=== PATIENT | male | born 1955 | race Asian ===

== ENCOUNTER 2017-08-07 01:50 | Emergency (ER) | payer MEDICAID ==
[2017-08-07 01:55] VITALS: BP 164/73
[2017-08-07] MEDS ORDERED: Prochlorperazine 10 MG/2 ML SDV IVPUSH ONE (02:24)
[2017-08-07] MEDS ORDERED: diphenhydrAMINE 50 MG/ML SDV IVPUSH ONE (02:25)
[2017-08-07] MEDS ORDERED: Sodium Chloride 0.9% 1,000 ML IV SCH (02:30)
--- NOTE | 2017-08-07 03:43 | EDM.PDOC ---
ED HPI GENERAL MEDICAL PROBLEM - General Chief Complaint: Headache Stated Complaint: HEADACHE/VOMITING Time Seen by Provider: 08/07/17 02:23 Source of Information: Reports: Family History Limitations: Reports: No Limitations - History of Present Illness INITIAL COMMENTS - FREE TEXT/NARRATIVE: This patient has a severe migraine which is similar to his previous headaches. When he gets a really bad headache he tends to feel short of breath and that happened today to. He took his medications at home but that didn't seem to help the headache. Headache Pain Score (Numeric/FACES): 8 - Related Data Allergies Allergy/AdvReac Type Severity Reaction Status Date / Time No Known Allergies Allergy Verified 04/12/16 08:45 Home Meds: Home Meds Fluticasone Propionate [Flonase] 2 sprays NS DAILY 03/22/16 [History] Loratadine [Claritin] 10 mg PO DAILY 03/22/16 [History] Pantoprazole [Protonix] 40 mg PO DAILY #30 tab.cr 03/23/16 [Rx] SUMAtriptan [Imitrex] 50 mg PO Q2H PRN #9 tablet 03/23/16 [Rx] Acetaminophen/Aspirin/Caffeine [Pain Reliever Plus] 1 tab PO DAILY PRN 04/12/16 [History] Past Medical History - Past Health History Medical/Surgical History: Denies Medical/Surgical History HEENT History: Reports: Allergic Rhinitis Gastrointestinal History: Reports: Gastritis, GERD Neurological History: Reports: Migraines - Past Surgical History Head Surgeries/Procedures: Reports: None Cardiovascular Surgical History: Reports: None Respiratory Surgical History: Reports: None GI Surgical History: Reports: None Social & Family History - Family History Family Medical History: Unobtainable HEENT: Reports: None Cardiac: Reports: None Respiratory: Reports: None GI: Reports: None : Reports: None OBGYN: Reports: None Musculoskeletal: Reports: None Neurological: Reports: None Psychiatric: Reports: None Endocrine/Metabolic: Reports: None Hematologic: Reports: None Immunologic: Reports: None Oncologic: Reports: None - Tobacco Use Smoking Status *Q: Former Smoker Years of Tobacco use: 36 Packs/Tins Daily: 1 Used Tobacco, but Quit: Yes Month/Year Tobacco Last Used: 24 Second Hand Smoke Exposure: No - Caffeine Use Caffeine Use: Reports: Energy Drinks - Alcohol Use Days Per Week of Alcohol Use: 7 Number of Drinks Per Day: 1 Total Drinks Per Week: 7 - Recreational Drug Use Recreational Drug Use: No ED ROS GENERAL - Review of Systems Review Of Systems: ROS reveals no pertinent complaints other than HPI. - Physical Exam Exam: See Below Exam Limited By: No Limitations General Appearance: Alert, WD/WN, Mild Distress Eye Exam: Bilateral Eye: EOMI, PERRL Throat/Mouth: Normal Inspection Neck: Normal Inspection Respiratory/Chest: Lungs Clear Cardiovascular: Regular Rate, Rhythm Neuro Exam (Abbreviated): Alert, CN II-XII Intact, No Motor/Sensory Deficits Extremities: Normal Inspection Psychiatric: Normal Affect Skin Exam: Warm, Dry Course - Vital Signs Last Recorded V/S: Last Vital Signs Temp 36.2 C 08/07/17 01:54 Pulse 63 08/07/17 01:54 Resp 14 08/07/17 01:54 BP 164/73 H 08/07/17 01:54 Pulse Ox 90 L 08/07/17 01:54 - Orders/Labs/Meds Meds: Medications Discontinued Medications Generic Name Dose Route Start Last Admin Trade Name Jose PRN Reason Stop Dose Admin Diphenhydramine HCl 50 mg 08/07/17 02:25 08/07/17 02:37 Benadryl IVPUSH 08/07/17 02:26 50 mg ONETIME ONE Administration Sodium Chloride 1,000 mls @ 999 mls/hr 08/07/17 02:30 08/07/17 02:36 Normal Saline IV 999 mls/hr ASDIRECTED NAZ Administration Prochlorperazine Edisylate 10 mg 08/07/17 02:24 08/07/17 02:37 Compazine IVPUSH 08/07/17 02:25 10 mg ONETIME ONE Administration - Re-Assessments/Exams Free Text/Narrative Re-Assessment/Exam: 08/07/17 05:13 This patient received 1 L IV normal saline 10 mg of Compazine and 50 mg of Benadryl IV. He had good relief of his headache and was discharged. Departure - Departure Time of Disposition: 03:42 Disposition: Home, Self-Care 01 Condition: Fair Clinical Impression: Migraine - Discharge Information Instructions: Migraine Headache Referrals: PCP,None [Primary Care Provider] - Forms: ED Department Discharge Additional Instructions: Continue your usual medications. Note that the medications she received in the ER will continue to cause sedation for at least the next 12 hours. These medications can impair driving or operating machinery.
== END 2017-08-07 04:01 | disposition home or self-care (01) ==
LOC: JP.ED 01:50
DX: G43.909 Migraine, unspecified, not intractable, without status migrainosus (principal); Z87.891 Personal history of nicotine dependence; Z79.899 Other long term (current) drug therapy
CPT/HCPCS: 96361; 96374; 96375; 99283; J0780; J1200; J7040

== ENCOUNTER 2018-09-20 14:51 | Emergency (ER) | payer MEDICAID ==
[2018-09-20 15:16] VITALS: BP 159/92
[2018-09-20] MEDS ORDERED: Fluorescein 1 MG Ophth Strip EYERT ONE (15:23)
[2018-09-20] MEDS ORDERED: Proparacaine 0.5% Ophth Soln 15 ML Bottle EYERT ONE (15:24)
--- NOTE | 2018-09-20 15:34 | EDM.PDOC ---
ED HPI GENERAL MEDICAL PROBLEM - General Chief Complaint: Eye Problems Stated Complaint: RIGHT EYE INJURY SOMETHING FELL ON HIM Time Seen by Provider: 09/20/18 15:23 Source of Information: Reports: Patient History Limitations: Reports: Language Barrier - History of Present Illness INITIAL COMMENTS - FREE TEXT/NARRATIVE: Patient presents for evaluation of an injury to the right eye region. 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 Now the next day the eye is uncomfortable and he has blurry vision. The left eye is fine. Duration: Day(s): (1) Location: Reports: Head Quality: Reports: Dull Severity: Mild Improves with: Reports: None Worsens with: Reports: None - Related Data Allergies Allergy/AdvReac Type Severity Reaction Status Date / Time No Known Allergies Allergy Verified 04/12/16 08:45 Home Meds: Home Meds Fluticasone Propionate [Flonase] 2 sprays NS DAILY 03/22/16 [History] Loratadine [Claritin] 10 mg PO DAILY 03/22/16 [History] Pantoprazole [Protonix] 40 mg PO DAILY #30 tab.cr 03/23/16 [Rx] SUMAtriptan [Imitrex] 50 mg PO Q2H PRN #9 tablet 03/23/16 [Rx] Acetaminophen/Aspirin/Caffeine [Pain Reliever Plus] 1 tab PO DAILY PRN 04/12/16 [History] Past Medical History - Past Health History Medical/Surgical History: Denies Medical/Surgical History HEENT History: Reports: Allergic Rhinitis Gastrointestinal History: Reports: Gastritis, GERD Neurological History: Reports: Migraines - Past Surgical History Head Surgeries/Procedures: Reports: None Cardiovascular Surgical History: Reports: None Respiratory Surgical History: Reports: None GI Surgical History: Reports: None Social & Family History - Family History Family Medical History: Unobtainable HEENT: Reports: None Cardiac: Reports: None Respiratory: Reports: None GI: Reports: None : Reports: None OBGYN: Reports: None Musculoskeletal: Reports: None Neurological: Reports: None Psychiatric: Reports: None Endocrine/Metabolic: Reports: None Hematologic: Reports: None Immunologic: Reports: None Oncologic: Reports: None - Caffeine Use Caffeine Use: Reports: Energy Drinks ED ROS GENERAL - Review of Systems Review Of Systems: See Below HEENT: Reports: Eye Pain, Vision Change ED EXAM GENERAL W FULL EYE - Physical Exam Exam: See Below Text/Narrative:: Plain light inspection of the right eye does not show any obvious defect. Topical proparacaine and pleurisy were applied to the eye and a small corneal abrasion was seen at the 2 o'clock position of the eye. Exam Limited By: Language Barrier General Appearance: Alert, No Apparent Distress Eye Exam: Right Eye: Corneal Abrasion (2 o'clock position) Cornea Exam: Right: Corneal Abrasion, Examined with Flourescein Pupillary Reaction: Bilateral: Brisk Anterior Chamber: Right: Normal Appearance Course - Vital Signs Last Recorded V/S: Last Vital Signs Temp 36.8 C 09/20/18 15:15 Pulse 65 09/20/18 15:15 Resp 13 09/20/18 15:15 BP 159/92 H 09/20/18 15:15 Pulse Ox 96 09/20/18 15:15 - Orders/Labs/Meds Meds: Medications Discontinued Medications Generic Name Dose Route Start Last Admin Trade Name Jose PRN Reason Stop Dose Admin Fluorescein Sodium 1 mg 09/20/18 15:23 09/20/18 15:46 Ful-Larisa EYERT 09/20/18 15:24 1 mg ONETIME ONE Administration Proparacaine HCl 4 ml 09/20/18 15:24 09/20/18 15:30 Proparacaine 0.5% Ophth Soln EYERT 09/20/18 15:25 2 drop ONETIME ONE Administration - Re-Assessments/Exams Free Text/Narrative Re-Assessment/Exam: 09/20/18 19:56 he tolerated the eye exam well. No foreign bodies were seen. I will have him use erythromycin eye ointment, 1 cm applied to the inside of the lower lid 4 times a day for 3 days. Cold water cloths to the eyelid area as much as possible in the next 24 hours. Recheck with eye doctor if not better in 3 days or return to this department. Departure - Departure Time of Disposition: 15:44 Disposition: Home, Self-Care 01 Condition: Good Clinical Impression: Corneal abrasion Qualifiers: Laterality: right - Discharge Information *PRESCRIPTION DRUG MONITORING PROGRAM REVIEWED*: Not Applicable *COPY OF PRESCRIPTION DRUG MONITORING REPORT IN PATIENT ELY: Not Applicable Instructions: Corneal Abrasion, [id number] Referrals: PCP,None [Primary Care Provider] - Forms: ED Department Discharge Additional Instructions: Do not rub the eye. Apply cold water cloth over the eyelids as much as possible today and tonight. Apply erythromycin eye ointment, 1 cm to the lower eyelid 4 times a day over the next 3 days. If still uncomfortable after 3 days, recheck in clinic or emergency department.
== END 2018-09-20 15:52 | disposition home or self-care (01) ==
LOC: JP.ED 14:51
DX: S05.01XA Injury of conjunctiva and corneal abrasion without foreign body, right eye, initial encounter (principal); W20.8XXA Other cause of strike by thrown, projected or falling object, initial encounter; Y93.89 Activity, other specified; J30.9 Allergic rhinitis, unspecified; K21.9 Gastro-esophageal reflux disease without esophagitis; K29.70 Gastritis, unspecified, without bleeding; G43.909 Migraine, unspecified, not intractable, without status migrainosus; Z79.899 Other long term (current) drug therapy
CPT/HCPCS: 99282; A9270

== ENCOUNTER 2020-10-12 08:37 | Emergency (ER) | payer MEDICAID ==
[2020-10-12 09:14] VITALS: BP 156/74; PULSE 51
[2020-10-12] MEDS ORDERED: Bacitracin Oint 1 GM U/D Packet TOP ONE (09:33)
--- NOTE | 2020-10-12 09:34 | EDM.PDOC ---
ED HPI GENERAL MEDICAL PROBLEM - General Chief Complaint: Lower Extremity Injury/Pain Stated Complaint: LEFT FOOT HURTS TO WALK Time Seen by Provider: 10/12/20 09:34 Source of Information: Reports: Patient History Limitations: Reports: No Limitations - History of Present Illness INITIAL COMMENTS - FREE TEXT/NARRATIVE: pt stepped on a sharp bone about 3 days ago. He is having increased pain in the anterior portion of the foot. Onset: Gradual, Other ( this happened 3 days ago, ) Duration: Hour(s): Location: Reports: Lower Extremity, Left Associated Symptoms: Reports: No Other Symptoms Left Feet Pain Score (Numeric/FACES): 8 - Related Data Allergies Allergy/AdvReac Type Severity Reaction Status Date / Time No Known Allergies Allergy Verified 10/12/20 09:14 Home Meds: Home Meds Fluticasone Propionate [Flonase] 2 sprays NS DAILY 03/22/16 [History] Loratadine [Claritin] 10 mg PO DAILY 03/22/16 [History] SUMAtriptan [Imitrex] 50 mg PO Q2H PRN #9 tablet 03/23/16 [Rx] Olopatadine HCl [Pataday Once Daily Relief] 5 ml OP ASDIRECTED 10/12/20 [History] Past Medical History - Past Health History Medical/Surgical History: Denies Medical/Surgical History HEENT History: Reports: Allergic Rhinitis Gastrointestinal History: Reports: Gastritis, GERD Neurological History: Reports: Migraines - Infectious Disease History Infectious Disease History: Reports: Other (See Below) Other Infectious Disease History: unknown - Past Surgical History Head Surgeries/Procedures: Reports: None HEENT Surgical History: Reports: None Cardiovascular Surgical History: Reports: None Respiratory Surgical History: Reports: None GI Surgical History: Reports: None Social & Family History - Family History Family Medical History: Unobtainable HEENT: Reports: None Cardiac: Reports: None Respiratory: Reports: None GI: Reports: None : Reports: None OBGYN: Reports: None Musculoskeletal: Reports: None Neurological: Reports: None Psychiatric: Reports: None Endocrine/Metabolic: Reports: None Hematologic: Reports: None Immunologic: Reports: None Oncologic: Reports: None - Tobacco Use Tobacco Use Status *Q: Unknown Ever Used Tobacco - Caffeine Use Caffeine Use: Reports: Tea Review of Systems - Review of Systems Review Of Systems: See Below Constitutional: Reports: No Symptoms Eyes: Reports: No Symptoms Ears: Reports: No Symptoms Nose: Reports: No Symptoms Mouth/Throat: Reports: No Symptoms Respiratory: Reports: No Symptoms Cardiovascular: Reports: No Symptoms Musculoskeletal: Reports: Other (painful left foot. ) ED EXAM, GENERAL - Physical Exam Exam: See Below Free Text/Narrative:: pt stepped on a bone ans has a puncture wound on the bottom of the left foot. Exam Limited By: No Limitations General Appearance: Alert, Anxious, Mild Distress Extremities: Other (pt is tender around the puncture wound. The pt thinks the bone came out intact. There is slight redness present. He is not current with his tetanus. ) Course - Vital Signs Last Recorded V/S: Last Vital Signs Temp 36.5 C 10/12/20 09:10 Pulse 51 L 10/12/20 09:10 Resp 16 10/12/20 09:10 BP 156/74 H 10/12/20 09:10 Pulse Ox 95 10/12/20 09:10 - Orders/Labs/Meds Meds: Medications Discontinued Medications Generic Name Dose Route Start Last Admin Trade Name Jose PRN Reason Stop Dose Admin Bacitracin 1 dose 10/12/20 09:33 Bacitracin Oint 1 Gm U/D Packet TOP 10/12/20 09:34 ONETIME ONE - Re-Assessments/Exams Free Text/Narrative Re-Assessment/Exam: 10/12/20 09:42 foot was soaked and dressed with bacatracin. He was given a tdap. Departure - Departure Time of Disposition: 09:34 Disposition: Home, Self-Care 01 Condition: Fair Clinical Impression: Infected puncture wound - Discharge Information Referrals: PCP,None [Primary Care Provider] - Forms: ED Department Discharge Care Plan Goals: soak in soapy water twice daily for 20 minutes, dry, apply bacatracin and a bandaid, keflex 500mg tid for 1 week. . tylenol and motrin for pain. Sepsis Event Note (ED) - Evaluation Sepsis Screening Result: No Definite Risk - Focused Exam Vital Signs: Vital Signs Temp Pulse Resp BP Pulse Ox 10/12/20 09:10 36.5 C 51 L 16 156/74 H 95
[2020-10-12] MEDS ORDERED: Diphtheria,Pertussis(Acell),Tetanus Vaccine 0.5 ML Syringe IM ONE (09:39)
== END 2020-10-12 09:56 | disposition home or self-care (01) ==
LOC: JP.ED 08:37
DX: S91.332A Puncture wound without foreign body, left foot, initial encounter (principal); L08.9 Local infection of the skin and subcutaneous tissue, unspecified; G43.909 Migraine, unspecified, not intractable, without status migrainosus; Z23 Encounter for immunization; Z79.899 Other long term (current) drug therapy; W22.8XXA Striking against or struck by other objects, initial encounter
CPT/HCPCS: 90471; 90715; 99282; 99283

== ENCOUNTER 2020-11-17 20:40 | Emergency (ER) | payer MEDICAID ==
[2020-11-17 20:53] VITALS: BP 150/77; PULSE 67
--- NOTE | 2020-11-17 22:15 | EDM.PDOC ---
ED HPI GENERAL MEDICAL PROBLEM - General Chief Complaint: General Stated Complaint: DIZZY,WEAK Time Seen by Provider: 11/17/20 21:38 Source of Information: Reports: Family (daughter acting as educational interpreter due to language barrier) History Limitations: Reports: Language Barrier - History of Present Illness INITIAL COMMENTS - FREE TEXT/NARRATIVE: Patient presents emergency room today secondary to 1 to 2-month history of dizzy weakness headache sweating episode shaking as described their interpretation by daughter. Patient states that he had a typical migraine today about 3 hours ago he took sumatriptan 50 mg as well as 1 acetaminophen it did help his headache slightly but usually it decreases it much more. So he came to the emergency room room for further evaluation. Daughter states that he has not seen his primary care provider in over 2 years. PMH--migraine HAs Meds--sumatriptan prn NKDA tob/drug--denies EtOH--rare COVID immunization (second dose received) early [place] Headache Pain Score (Numeric/FACES): 5 - Related Data Allergies Allergy/AdvReac Type Severity Reaction Status Date / Time No Known Allergies Allergy Verified 11/17/20 21:21 Home Meds: Home Meds SUMAtriptan [Imitrex] 50 mg PO Q2H PRN #9 tablet 03/23/16 [Rx] Past Medical History - Past Health History Medical/Surgical History: Denies Medical/Surgical History HEENT History: Reports: Allergic Rhinitis Gastrointestinal History: Reports: Gastritis, GERD Neurological History: Reports: Migraines - Infectious Disease History Infectious Disease History: Reports: Other (See Below) Other Infectious Disease History: unknown - Past Surgical History Head Surgeries/Procedures: Reports: None Respiratory Surgical History: Reports: None Social & Family History - Family History Family Medical History: Unobtainable HEENT: Reports: None Cardiac: Reports: None Respiratory: Reports: None GI: Reports: None : Reports: None OBGYN: Reports: None Musculoskeletal: Reports: None Neurological: Reports: None Psychiatric: Reports: None Endocrine/Metabolic: Reports: None Hematologic: Reports: None Immunologic: Reports: None Oncologic: Reports: None - Tobacco Use Tobacco Use Status *Q: Never Tobacco User - Caffeine Use Caffeine Use: Reports: None - Recreational Drug Use Recreational Drug Use: No ED ROS GENERAL - Review of Systems Review Of Systems: See Below Constitutional: Reports: Weakness HEENT: Reports: No Symptoms Respiratory: Reports: No Symptoms Cardiovascular: Reports: No Symptoms Endocrine: Reports: No Symptoms GI/Abdominal: Reports: Nausea : Reports: No Symptoms Musculoskeletal: Reports: No Symptoms Skin: Reports: No Symptoms Neurological: Reports: Dizziness, Headache, Weakness. Denies: Numbness, Tingling, Change in Speech Psychiatric: Reports: No Symptoms Hematologic/Lymphatic: Reports: No Symptoms Immunologic: Reports: No Symptoms ED EXAM, GENERAL - Physical Exam Exam: See Below Exam Limited By: No Limitations General Appearance: Alert, WD/WN, Mild Distress (laying flat in bed (only in dicates having dizziness at this time)) Eye Exam: Bilateral Eye: EOMI, Normal Inspection, PERRL Ears: Normal External Exam, Hearing Grossly Normal Nose: Normal Inspection Throat/Mouth: Normal Inspection, Normal Lips, Normal Teeth, Normal Oropharynx, Normal Voice, No Airway Compromise Head: Atraumatic, Normocephalic Neck: Normal Inspection, Supple, Non-Tender, Full Range of Motion Respiratory/Chest: No Respiratory Distress, Lungs Clear, Normal Breath Sounds, No Accessory Muscle Use Cardiovascular: Normal Peripheral Pulses, Regular Rate, Rhythm, No Edema, No Murmur Peripheral Pulses: 2+: Radial (L), Radial (R) GI/Abdominal: Normal Bowel Sounds, Soft, Non-Tender, No Distention (Male) Exam: Deferred Rectal (Males) Exam: Deferred Back Exam: Normal Inspection, Full Range of Motion Extremities: Normal Inspection, Normal Range of Motion, No Pedal Edema, Normal Capillary Refill Neurological: Alert, Oriented, CN II-XII Intact, Normal Cognition, No Motor/Sensory Deficits Psychiatric: Normal Affect, Normal Mood Skin Exam: Warm, Dry, Intact, Normal Color #1 Interpretation EKG Date: 11/17/20 Time: 22:31 (read by physician at 2237) Rhythm: NSR Rate (Beats/Min): 60 [place]: Normal P-Wave: Present (AR-169) QRS: Normal (QRS-95) ST-T: Normal QT: Normal (QT/QTc-417/417) EKG Interpretation Comments: NSR, normal EKG; no STEMI noted Course - Vital Signs Text/Narrative:: 2324--labs and radiology have been reviewed final CT reports no acute process. Labs noted for elevated glucose, mildly elevated BUN, mildly elevated hemoglobin. At this time recommend increase fluids water for better hydration as well as need for PCM follow-up regarding not only noted elevated blood pressure but also elevated blood glucose level as patient needs further evaluation for hypertension and diabetes this was discussed with patient and daughter at bedside verbalized understanding agreement ready for discharge Last Recorded V/S: Last Vital Signs Temp 97.6 F 11/17/20 21:18 Pulse 67 11/17/20 21:18 Resp 16 11/17/20 21:18 BP 150/77 H 11/17/20 21:18 Pulse Ox 98 11/17/20 21:18 Orthostatic Blood Pressure [ 162/96 Standing] Orthostatic Blood Pressure [ 150/85 Sitting] Orthostatic Blood Pressure [ 153/82 Supine] - Orders/Labs/Meds Orders: Active Orders 24 hr Category Date Time Status EKG Documentation Completion [RC] ASDIRECTED Care 11/17/20 22:09 Active EKG 12 Lead [EK] Routine Ther 11/17/20 22:09 Ordered Labs: Laboratory Tests 11/17/20 11/17/20 Range/Units 22:22 22:22 WBC 5.9 (4.5-11.0) K/uL RBC 5.16 (4.30-5.90) M/uL Hgb 15.5 H (12.0-15.0) g/dL Hct 45.5 (40.0-54.0) % MCV 88 (80-98) fL MCH 30 (27-31) pg MCHC 34 (32-36) % Plt Count 154 (150-400) K/uL Neut % (Auto) 57.1 (36-66) % Lymph % (Auto) 30.8 (24-44) % [place] % (Auto) 9.9 H (2-6) % Eos % (Auto) 1.9 L (2-4) % Baso % (Auto) 0.3 (0-1) % Sodium 143 (140-148) mmol/L Potassium 4.2 (3.6-5.2) mmol/L Chloride 104 (100-108) mmol/L Carbon Dioxide 29 (21-32) mmol/L Anion Gap 10.3 (5.0-14.0) mmol/L BUN 22 H (7-18) mg/dL Creatinine 1.1 (0.8-1.3) mg/dL Est Cr Clr Drug Dosing 62.83 mL/min Estimated GFR (MDRD) > 60 (>60) Glucose 171 H (74-106) mg/dL Calcium 8.5 (8.5-10.1) mg/dL Total Bilirubin 0.5 (0.2-1.0) mg/dL AST 29 D (15-37) U/L ALT 66 D (12-78) U/L Alkaline Phosphatase 65 (46-116) U/L Total Protein 6.8 (6.4-8.2) g/dL Albumin 3.3 L (3.4-5.0) g/dL Globulin 3.5 (2.3-3.5) g/dL Albumin/Globulin Ratio 0.9 L (1.2-2.2) - Radiology Interpretation CT Results Date: 11/17/20 CT Results Time: 22:42 (preliminary reading no acute findings; final radiology report pending) Departure - Departure Time of Disposition: 23:26 Disposition: Home, Self-Care 01 Clinical Impression: Chronic migraine, Dizziness, Elevated blood pressure reading, Hyperglycemia - Discharge Information *PRESCRIPTION DRUG MONITORING PROGRAM REVIEWED*: Not Applicable *COPY OF PRESCRIPTION DRUG MONITORING REPORT IN PATIENT ELY: Not Applicable Instructions: Recurrent Migraine Headache, [id number], Hypertension, Adult, [id number], Dizziness, [id number] Referrals: PCP,None [Primary Care Provider] - Forms: ED Department Discharge Additional Instructions: Ensure that you are drinking plenty of fluids--water, juice, sports drinks of choice to stay well hydrated Ensure that you are getting plenty of sleep / rest Avoid excessive salt/sodium in your diet as this can be a trigger for migraines plus your blood pressure is noted to be elevated today in the ER You have been given a prescription for meclizine (Antivert) to be used for dizzy episodes--do not drive when taking this medication as it may cause you to be sleepy/drowsy You should schedule an appointment with your family doctor in the next 7-10 days to follow up today's ER visit and noted elevated blood pressure and noted elevated blood glucose reading today--as you need to be further evaluated for diabetes and hypertension Sepsis Event Note (ED) - Evaluation Sepsis Screening Result: No Definite Risk - Focused Exam Vital Signs: Vital Signs Temp Pulse Resp BP Pulse Ox 11/17/20 21:18 97.6 F 67 16 150/77 H 98 11/17/20 20:51 97.6 F 67 16 150/77 H 98 - My Orders Last 24 Hours: My Active Orders 11/17/20 22:09 EKG Documentation Completion [RC] ASDIRECTED EKG 12 Lead [EK] Routine - Assessment/Plan Last 24 Hours: My Active Orders 11/17/20 22:09 EKG Documentation Completion [RC] ASDIRECTED EKG 12 Lead [EK] Routine
--- NOTE | 2020-11-17 23:19 | CRLCT ---
For Patients: As a result of the Century Cures Act, medical imaging exams and procedure reports are released immediately into your electronic medical record. You may view this report before your referring provider. If you have questions, please contact your health care provider. DATE: 11/17/2020 CLINICAL HISTORY: Patient with dizziness and headache. TECHNIQUE: Standard CT scanning of the head was performed. COMPARISON: None. FINDINGS: There is no intracranial hemorrhage. The coronel matter-white matter differentiation is intact. The size of the ventricular system is normal for age. There is no mass effect or midline shift. The calvarium is unremarkable. The orbits are unremarkable. The paranasal sinuses demonstrate mild ethmoid air cell mucosal thickening. The mastoid air cells are unremarkable. The soft tissues are unremarkable. IMPRESSION: Normal head CT. Please note that all CT scans at this facility use dose modulation, iterative reconstruction, and/or weight-based dosing when appropriate to reduce radiation dose to as low as reasonably achievable. Dictated by Sixto De Leon MD @ 11/17/2020 11:16:[address] Sixto De Leon @ Nov 17 2020 11:16PM
[2020-11-17] MEDS ORDERED: Meclizine 25 MG Tab PO ONE (23:25)
== END 2020-11-17 23:52 | disposition home or self-care (01) ==
LOC: JP.ED 20:40
DX: G43.909 Migraine, unspecified, not intractable, without status migrainosus (principal); R73.9 Hyperglycemia, unspecified; R03.0 Elevated blood-pressure reading, without diagnosis of hypertension
CPT/HCPCS: 36415; 70450; 80053; 85025; 93005; 99285; A9270

== ENCOUNTER 2021-05-17 | Emergency (ER) | payer MEDICAID ==
[2021-05-17 00:40] VITALS: BP 150/81; PULSE 70
[2021-05-17 01:13] LABS: CORONAVIRUS COVID-19 NAA POSITIVE (NEGATIVE)
== END 2021-05-17 02:14 | disposition home or self-care (01) ==
LOC: JP.ED
DX: U07.1 COVID-19 (principal)
CPT/HCPCS: 0241U; 99283

== ENCOUNTER 2022-07-30 15:08 | Emergency (ER) | payer MEDICAID ==
[2022-07-30 15:29] VITALS: BP 190/77; PULSE 64
== END 2022-07-30 17:06 | disposition home or self-care (01) ==
LOC: JP.ED 15:08
DX: E78.5 Hyperlipidemia, unspecified (principal); H10.13 Acute atopic conjunctivitis, bilateral; J30.9 Allergic rhinitis, unspecified; I10 Essential (primary) hypertension; K21.9 Gastro-esophageal reflux disease without esophagitis; Z88.8 Allergy status to other drugs, medicaments and biological substances
CPT/HCPCS: 99283

== ENCOUNTER 2022-08-21 15:28 | Emergency (ER) | payer MEDICAID ==
[2022-08-21] MEDS ORDERED: Ondansetron 4 MG/2 ML SDV IVPUSH ONE (16:16)
[2022-08-21] MEDS ORDERED: Sodium Chloride 0.9% 1,000 ML IV SCH (16:30)
[2022-08-21] MEDS ORDERED: Sodium Chloride 0.9% 10 ML Syringe FLUSH PRN (16:32)
[2022-08-21] MEDS ORDERED: Sodium Chloride 0.9% 50 ML IV SCH (16:45)
[2022-08-21] MEDS ORDERED: Iopamidol 612 MG/ML 100 ML Bottle IV SCH (16:45)
[2022-08-21] MEDS: Sodium Chloride 0.9% 10 ML Syringe FLUSH PRN ×2 (16:47→17:36)
[2022-08-21 17:10] LABS: ESTIMATED GFR 75 mL/min (>60)
[2022-08-21 18:06] VITALS: BP 157/80; PULSE 72
== END 2022-08-21 19:44 | disposition home or self-care (01) ==
LOC: JP.ED 15:28
DX: K52.9 Noninfective gastroenteritis and colitis, unspecified (principal); E78.00 Pure hypercholesterolemia, unspecified; I10 Essential (primary) hypertension; Z88.8 Allergy status to other drugs, medicaments and biological substances; Z79.899 Other long term (current) drug therapy
CPT/HCPCS: 36415; 74177; 80053; 83605; 83690; 85025; 96361; 96374; 99284; J2405; J3490; J7030; Q9967

== ENCOUNTER 2022-11-07 13:49 | Emergency (ER) | payer MEDICAID ==
[2022-11-07 14:57] VITALS: BP 143/81; PULSE 71
[2022-11-07] MEDS ORDERED: Ketorolac 30 MG/ML SDV IM ONE (16:12)
== END 2022-11-07 17:27 | disposition home or self-care (01) ==
LOC: JP.ED 13:49
DX: S40.012A Contusion of left shoulder, initial encounter (principal); E78.00 Pure hypercholesterolemia, unspecified; I10 Essential (primary) hypertension; K21.9 Gastro-esophageal reflux disease without esophagitis; Z79.899 Other long term (current) drug therapy; Z88.8 Allergy status to other drugs, medicaments and biological substances; W18.30XA Fall on same level, unspecified, initial encounter
CPT/HCPCS: 73030-26-LT; 73030-LT; 99283

== ENCOUNTER 2023-07-26 22:31 | Emergency (ER) | payer MEDICAID ==
[2023-07-26 23:23] LABS: BASOPHILS ABSOLUTE AUTO 0.03 K/uL (0.00-0.10); BASOPHILS PERCENT AUTO 0.3 % (0.1-1.3); EOSINOPHILS ABSOLUTE AUTO 0.14 K/uL (0.00-0.40); EOSINOPHILS PERCENT AUTO 1.4 % (0.0-5.4); HEMATOCRIT 44.9 % (38.4-49.7); HEMOGLOBIN 15.4 g/dL (12.9-16.9); IMMATURE GRAN ABSOLUTE AUTO 0.02 K/uL (0.00-0.23); IMMATURE GRAN PERCENT AUTO 0.2 % (0.0-0.7); LYMPHOCYTES ABSOLUTE AUTO 1.95 K/uL (0.8-3.3); LYMPHOCYTES PERCENT AUTO 18.9 % (11.4-47.7); MEAN CORPUSCULAR HGB CONC 34.3 g/dL (31.6-35.5); MEAN CORPUSCULAR VOLUME 90.5 fL (81.4-99.0); MONOCYTES ABSOLUTE AUTO 0.82 K/uL (0.20-0.90); MONOCYTES PERCENT AUTO 7.9 % (3.3-12.6); NEUTROPHILS ABSOLUTE AUTO 7.38 K/uL (1.0-7.6); NEUTROPHILS PERCENT AUTO 71.3 % (40.0-78.1); PLATELET COUNT,PLT 157 K/uL (130-375); RED BLOOD CELL COUNT 4.96 M/uL (4.14-5.76); WHITE BLOOD CELL COUNT,WBC 10.3 K/uL (3.2-11.0)
[2023-07-26 23:53] LABS: CORONAVIRUS COVID-19 NAA NEGATIVE (NEGATIVE); INFLUENZA A NAA NEGATIVE (NEGATIVE); INFLUENZA B NAA NEGATIVE (NEGATIVE); RESPIRATORY SYNCYTIAL VIR NAA NEGATIVE (NEGATIVE)
[2023-07-26 23:57] LABS: ANION GAP 10.1 mmol/L (5.0-14.0); C-REACTIVE PROTEIN 8.47 mg/dL (<0.50); CALCIUM 9.2 mg/dL (8.5-10.1); CREATININE 1.1 mg/dL (0.8-1.3); EST CRCL DRUG DOSING (CG) 62.59 mL/min; POTASSIUM,K 4.5 mmol/L (3.6-5.2)
[2023-07-27 01:12] VITALS: BP 130/77; PULSE 66
== END 2023-07-27 01:05 | disposition home or self-care (01) ==
LOC: JP.ED 22:31
DX: J06.9 Acute upper respiratory infection, unspecified (principal); R05.9 Cough, unspecified; K21.9 Gastro-esophageal reflux disease without esophagitis; E78.00 Pure hypercholesterolemia, unspecified; I10 Essential (primary) hypertension; Z79.899 Other long term (current) drug therapy; Z88.8 Allergy status to other drugs, medicaments and biological substances
CPT/HCPCS: 0241U; 36415; 71045; 80048; 84145; 85025; 86140; 87651; 99283

== ENCOUNTER 2023-09-22 21:45 | Emergency (ER) | payer MEDICARE ==
[2023-09-22 23:10] LABS: BASOPHILS ABSOLUTE AUTO 0.04 K/uL (0.00-0.10); BASOPHILS PERCENT AUTO 0.7 % (0.1-1.3); EOSINOPHILS ABSOLUTE AUTO 0.12 K/uL (0.00-0.40); HEMATOCRIT 42.4 % (38.4-49.7); HEMOGLOBIN 14.6 g/dL (12.9-16.9); IMMATURE GRAN PERCENT AUTO 0.2 % (0.0-0.7); LYMPHOCYTES ABSOLUTE AUTO 1.91 K/uL (0.8-3.3); LYMPHOCYTES PERCENT AUTO 31.9 % (11.4-47.7); MEAN CORPUSCULAR HEMOGLOBIN 30.9 pg (31.6-35.5); MEAN CORPUSCULAR HGB CONC 34.4 g/dL (31.6-35.5); MEAN CORPUSCULAR VOLUME 89.8 fL (81.4-99.0); MONOCYTES ABSOLUTE AUTO 0.65 K/uL (0.20-0.90); MONOCYTES PERCENT AUTO 10.9 % (3.3-12.6); NEUTROPHILS ABSOLUTE AUTO 3.25 K/uL (1.0-7.6); NEUTROPHILS PERCENT AUTO 54.3 % (40.0-78.1); PLATELET COUNT,PLT 146 K/uL (130-375); RED BLOOD CELL COUNT 4.72 M/uL (4.14-5.76)
[2023-09-22 23:11] LABS: IMMATURE GRAN ABSOLUTE AUTO 0.01 K/uL (0.00-0.23)
[2023-09-22 23:30] LABS: ALANINE AMINOTRANSFERASE,ALT 32 U/L (12-78); ALBUMIN 3.5 g/dL (3.4-5.0); ALKALINE PHOSPHATASE 66 U/L (46-116); ANION GAP 6.1 mmol/L (5.0-14.0); ASPARTATE AMNIOTRANSFERASE,AST 18 U/L (15-37); BILIRUBIN TOTAL 0.4 mg/dL (0.2-1.0); BLOOD UREA NITROGEN,BUN 23 mg/dL (7-18); CALCIUM 9.1 mg/dL (8.5-10.1); CARBON DIOXIDE,CO2 30 mmol/L (21-32); CHLORIDE,CL 107 mmol/L (100-108); EST CRCL DRUG DOSING (CG) 64.91 mL/min; ESTIMATED GFR 84 mL/min (>60); GLUCOSE RANDOM 116 mg/dL (74-106); POTASSIUM,K 4.4 mmol/L (3.6-5.2); PROTEIN TOTAL,TP 6.9 g/dL (6.4-8.2); SODIUM,NA 143 mmol/L (140-148)
[2023-09-23] MEDS: Gabapentin 300 MG Cap PO ONE (00:37)
[2023-09-23 01:11] VITALS: BP 166/94; PULSE 63
== END 2023-09-23 00:57 | disposition home or self-care (01) ==
LOC: JP.ED 21:45
DX: B02.9 Zoster without complications (principal); I10 Essential (primary) hypertension; E78.00 Pure hypercholesterolemia, unspecified; K21.9 Gastro-esophageal reflux disease without esophagitis; Z79.899 Other long term (current) drug therapy; Z88.8 Allergy status to other drugs, medicaments and biological substances
CPT/HCPCS: 36415; 80053; 85025; 99283; A9270